=== PATIENT | female | born 1940 | race Caucasian/White ===

== ENCOUNTER → 2016-12-18 | Day surgery (SDC) | payer MEDICARE, OTHER ==
[~2016-12-18] VITALS: Ht 157.5 cm; Wt 49.6 kg
[~2016-12-18] MED LIST: ACETAMINOPHEN 325MG/HYDROcodone 7.5MG/15ML UDC ONE; AMPICILLIN-SULBACTAM INJ 3 GM VIAL ONE; AMPICILLIN/SULBAC 3 GM/NS 100 ML IV SCH; ASPI1TAB69 PO; CALC1TAB87 PO; CHLORHEXIDINE GLUCONATE 2 % 1 PACK (2 CLOTHS) TOPICAL PRN; CITA10TA4 PO; DO NOT ADM ANY ANTICOAGULANT DRUGS PRN; EPINEPHrine HCL (1:1000) 30 MG/30 ML VIAL ONE; FOLBTAB2 PO; INSULIN HUMAN REGULAR 1,000 UNITS/10 ML VIAL SQ PRN; LACTATED RINGER'S 1000 ML IV PRN; LISI10TA3 PO; LOVA20TA PO; MAGN250T10 PO; METF500T PO; METOPROLOL TARTRATE 25 MG TAB PO PRN; OMEGCAP PO; ONDANSETRON HCL 4 MG/2 ML VIAL IV PUSH ONE; POVIDONE IODINE 5% (ANTISEPSIS KIT) 4 APPLICATIONS EACH NARE PRN; PROPOFOL 200 MG/20 ML AMP IV ONE; SODIUM CHLORID 0.9% 500 ML IV PRN; SODIUM CHLORIDE 0.9% INJ 100 ML ONE
[2016-12-18 09:06] VITALS: BP 190/86; PULSE 93; RESP 18; TEMP 98; O2SAT 100
[2016-12-18 12:05] VITALS: BP 148/69; PULSE 75; RESP 16; TEMP 98.4; O2SAT 97
--- NOTE | 2016-12-18 20:04 | EKG ---
Date Performed: 12/18/2016 Time Performed: 09:34:06 PTAGE: 76 years EKG: Sinus rhythm NORMAL ECG Since PREVIOUS TRACING , no significant change noted PREVIOUS TRACIN01/12/2014 09.44 DOCTOR: Leonarda Urban Interpretating Date/Time 12/18/2016 20:03:05
--- NOTE | 2016-12-24 12:48 | MP ---
cc: FIOR TRUJILLO M.D. DATE OF SURGERY December 18, [address] Fior Trujillo PREOPERATIVE DIAGNOSIS History of malignant neoplasm of right oropharynx. POSTOPERATIVE DIAGNOSIS History of malignant neoplasm of right oropharynx. OPERATION PERFORMED Direct laryngoscopy with biopsy. 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 She has had imaging study which showed progressive thickening of the soft tissue in the right oropharynx and is suspected to having a recurrence of carcinoma in this area. DESCRIPTION OF OPERATION The patient was taken to OR #8 and placed in the supine position. Following induction of general anesthesia and intubation, a shoulder roll and a Sam head drape were put in place. A dental guard was placed and using a Dedo laryngoscope the hypopharynx and larynx were brought into view. There was no gross evidence of malignancy in this area. Biopsy was obtained from the right oropharyngeal wall. Palpation of the nasopharynx, oropharynx and base of tongue showed no evidence of masses. The specimen was passed off the field for histological examination. The procedure was terminated. The patient was reversed from anesthesia and taken to the recovery room in good condition. No complications. Blood loss less than 10 mL. MD ADELITA Ang/ANDREW /10:36 AM /12:42 PM
== END | disposition home or self-care (01) ==
LOC: HSDC 08:19
PROVIDERS: ATTEND Otolaryngology
DX: J31.2 Chronic pharyngitis (principal); I10 Essential (primary) hypertension; J44.9 Chronic obstructive pulmonary disease, unspecified; Z85.818 Personal history of malignant neoplasm of other sites of lip, oral cavity, and pharynx
CPT/HCPCS: 00320; 31535; 88305; 93005; J0171; J0295; J2405; J3010; J7120